=== PATIENT | male | born 1980 | race Caucasian/White ===

== ENCOUNTER 2018-04-07 10:15 | Emergency (ER) | payer MEDICAID ==
[2018-04-07] MEDS ORDERED: ONDANSETRON 4 MG/2 ML VIAL IVP ONE (10:47)
[2018-04-07] MEDS ORDERED: KETOROLAC 15 MG/1 ML SDV IVP ONE (10:47)
[2018-04-07] MEDS ORDERED: NS 1,000 ML IV ONE (10:48)
--- NOTE | 2018-04-07 10:54 | EDPHY ---
H & P Stated Complaint: Achiness, nausea since last evening Time Seen by Provider: 04/07/18 10:26 HPI/ROS: CHIEF COMPLAINT: Headache, myalgias HISTORY OF PRESENT ILLNESS: 37-year-old male presents with headache and myalgias. Onset of moderate myalgias yesterday, associated with a moderate headache, lack of appetite and nausea. Slight nasal congestion, no cough. Had chills last night, but no fever. ABBOTT has gradually increased and is now severe. No relief with Tylenol. No aggrevating/allev factors. No other associated factors. Concerned about meningitis. REVIEW OF SYSTEMS: complete 10 point ROS reviewed and is negative except for the noted elements in the HPI Source: Patient - Personal History Current Tetanus Diphtheria and Acellular Pertussis (TDAP): Yes - Medical/Surgical History Other PMH: obesity, hyperlipidemia - Social History Smoking Status: Never smoked Alcohol Use: Sober Drug Use: None Additional Social History: - Physical Exam Exam: General Appearance: Alert, pleasant, well-appearing, morbidly obese Eyes: Pupils equal and round, no conjunctival pallor or injection ENT, Mouth: Mucous membranes moist Neck: Normal inspection Respiratory: Lungs are clear to auscultation Cardiovascular: Regular rate and rhythm Gastrointestinal: Abdomen is soft and nontender Neurological: Alert, oriented x3, cranial nerves II through XII intact, motor 5 /5, sensory grossly intact Skin: Warm and dry Extremities: Normal inspection Psychiatric: Mood and affect normal Constitutional: Initial Vital Signs Temperature (C) 37.1 C 04/07/18 10:16 Heart Rate 98 04/07/18 10:16 Respiratory Rate 16 04/07/18 10:16 Blood Pressure 110/84 H 04/07/18 10:16 O2 Sat (%) 94 04/07/18 10:16 O2 Delivery Mode Room Air Allergies/Adverse Reactions: No Known Allergies Allergy (Unverified 04/07/18 10:20) Home Medications: Medication Instructions Recorded Hydrocodone/APAP 5/325 [[place] 1 - 2 tab PO Q4H PRN #10 tab 04/07/18 5/325] Ondansetron Odt [Zofran Odt 4 mg 4 mg PO Q4 PRN #6 tab 04/07/18 (*)] Medical Decision Making - Diagnostics Imaging Results: Head CT 04/07/18 11:35 Impression: Normal brain. No intracranial hemorrhage, mass, or extraaxial fluid collection. No evidence of acute sinusitis. Findings discussed with emergency department physician, So Reyes MD on April 07, 2018 at 12:17 p.m. Imaging: Discussed imaging studies w/ call specialist Radiologist, I viewed and interpreted images myself ED Course/Re-evaluation: This patient presents with myalgias, headache and nausea. IV normal saline 1 L, Toradol, Tylenol and Zofran given. Influenza swab sent. 1130: texting as I enter the room, appears comfortable. Still c/o severe ABBOTT and neck pain, nausea has resolved. CT scan of the brain is unremarkable. Given leukocytosis, severe ABBOTT and h/o fever, concern for meningitis. Discussed with patient need for lumbar puncture to rule out meningitis. He agrees, as he has been mainly concerned about meningitis. Clearly understands the risks and benefits of this procedure. Given his morbid obesity, and inability to palpate usual landmarks for LP, will need to send him over to Radiology for LP under fluoroscopy. 2:15 p.m.-discussed with Dr. Jaspreet Burkett. Patient had a successful lumbar puncture under fluoroscopy. Awaiting results. 3:00 p.m.-spinal fluid: No white blood cells present, no evidence of meningitis. Few red blood cells present, consistent with traumatic tap, adequately clearing on the 2nd tube. Results d/w pt. Reassured, clinical presentation c/w viral syndrome. Warning signs discussed. Differential Diagnosis: Headache including but not limited to subarachnoid hemorrhage, migraine headache , tension headache and infectious causes such as meningitis, pharyngitis and sinusitis. - Data Points Laboratory Results: Laboratory Results 04/07/18 10:55 04/07/18 10:55 Microbiology Results: MICROBIOLOGY 04/07/18 13:54 Cerebral Spinal Fluid Gram Stain - Final 04/07/18 13:54 Cerebral Spinal Fluid CSF Culture - Preliminary Medications Given: Discontinued Medications Sodium Chloride (Ns) 1,000 mls @ 0 mls/hr IV ONCE ONE; Wide Open PRN Reason: Protocol Stop: 04/07/18 10:49 Last Admin: 04/07/18 10:59 Dose: 1,000 mls Ketorolac Tromethamine (Toradol) 30 mg IVP EDNOW ONE Stop: 04/07/18 10:48 Last Admin: 11/04/18 10:59 Dose: 30 mg Ondansetron HCl (Zofran) 4 mg IVP EDNOW ONE Stop: 04/07/18 10:48 Last Admin: 04/07/18 10:59 Dose: 4 mg Departure - Departure Disposition: Home, Routine, Self-Care Clinical Impression: Viral syndrome Headache Qualifiers: Headache type: unspecified Headache chronicity pattern: acute headache Intractability: not intractable Qualified Code(s): R51 - Headache Condition: Good Instructions: Viral Syndrome (ED), Lumbar Puncture (ED) Additional Instructions: You have a viral syndrome. You do not have meningitis. Drink plenty of fluids today. Alternate Tylenol and ibuprofen for pain control. Return for worsening symptoms or any concerns. Referrals: Yaneli Escobar MD [Primary Care Provider] - As per Instructions Prescriptions: Hydrocodone/APAP 5/325 [[place] 5/325] 1 - 2 tab PO Q4H PRN #10 tab PRN Reason: Pain, Moderate Ondansetron Odt [Zofran Odt 4 mg (*)] 4 mg PO Q4 PRN #6 tab PRN Reason: Nausea
[2018-04-07] MEDS ORDERED: KETOROLAC 15 MG/1 ML SDV ONE (11:02)
[2018-04-07 11:24] LABS: PLATELET COUNT 302 10^3/uL (150-400)
[2018-04-07 12:44] LABS: INR 1.05 (0.83-1.16); PROTIME(PATIENT) 13.9 SEC (12.0-15.0)
[2018-04-07] MEDS ORDERED: LIDOCAINE 1% 300 MG/30 ML SDV ONE (12:56)
[2018-04-07 15:29] VITALS: BP 146/72
== END 2018-04-07 15:29 | disposition home or self-care (01) ==
PROC: 009U3ZX Drainage of Spinal Canal, Percutaneous Approach, Diagnostic (ICD-10-PCS; principal; 2018-04-07)
DX: B34.9 Viral infection, unspecified (principal); E86.9 Volume depletion, unspecified
CPT/HCPCS: 96374; J1885; J2405

== ENCOUNTER 2018-04-15 14:59 | Emergency (ER) | payer MEDICAID ==
--- NOTE | 2018-04-15 15:53 | EDPHY ---
H & P Stated Complaint: L flank LLQ abd pain Time Seen by Provider: 04/15/18 15:26 HPI/ROS: CHIEF COMPLAINT: Urinary frequency, dysuria HISTORY OF PRESENT ILLNESS: 37-year-old male presents with urinary frequency and dysuria. Onset of urinary symptoms 2 days ago, associated with left lower back pain. Symptoms are moderate. The back pain and does not change with movement. No abdominal pain. No vomiting or fever. Recently seen for headache and neck pain, lumbar puncture performed and was negative for meningitis. Headache and neck pain have now resolved. REVIEW OF SYSTEMS: complete 10 point ROS reviewed and is negative except for the noted elements in the HPI - Personal History Current Tetanus/Diphtheria Vaccine: Unsure Current Tetanus Diphtheria and Acellular Pertussis (TDAP): Unsure - Medical/Surgical History Hx Asthma: No Hx Chronic Respiratory Disease: No Hx Diabetes: No Hx Cardiac Disease: No Hx Renal Disease: No Hx Cirrhosis: No Hx Alcoholism: No Hx HIV/AIDS: No Hx Splenectomy or Spleen Trauma: No Other PMH: obesity, hyperlipidemia, HTN, - Social History Smoking Status: Never smoked Additional Social History: - Physical Exam Exam: General Appearance: Alert, pleasant, obese Eyes: Pupils equal and round, no conjunctival pallor or injection ENT, Mouth: Mucous membranes moist Neck: Normal inspection Respiratory: Lungs are clear to auscultation Cardiovascular: Regular rate and rhythm Gastrointestinal: Abdomen is soft, mild suprapubic tenderness Back: No CVA tenderness and no midline/paraspinous tenderness Neurological: A&O, nonfocal exam Skin: Warm and dry, no rash Extremities: Normal inspection Psychiatric: Mood and affect normal Constitutional: Initial Vital Signs Temperature (C) 36.5 C 04/15/18 15:05 Heart Rate 75 04/15/18 15:05 Respiratory Rate 16 04/15/18 15:05 Blood Pressure 137/79 H 04/15/18 15:05 O2 Sat (%) 94 04/15/18 15:05 O2 Delivery Mode Room Air Allergies/Adverse Reactions: No Known Allergies Allergy (Unverified 04/15/18 15:05) Home Medications: Medication Instructions Recorded Hydrocodone/APAP 5/325 [[place] 1 - 2 tab PO Q4H PRN #10 tab 04/07/18 5/325] Ondansetron Odt [Zofran Odt 4 mg 4 mg PO Q4 PRN #6 tab 04/07/18 (*)] Ciprofloxacin [Cipro] 500 mg PO BID #20 tab 04/15/18 Medical Decision Making ED Course/Re-evaluation: This patient presents with urinary symptoms. Urinalysis consistent with urinary tract infection. Urine culture sent. Will treat with Cipro. Follow- up instructions given. Differential Diagnosis: Differential diagnosis includes though is not limited to acute prostatitis, pyelonephritis, kidney stone, intra-abdominal process - Data Points Laboratory Results: 04/15/18 15:10 Urine Color YELLOW Urine Appearance CLEAR Urine pH 6.0 (5.0-7.5) Ur Specific [place] 1.016 (1.002-1.030) Urine Protein NEGATIVE (NEGATIVE) Urine Ketones NEGATIVE (NEGATIVE) Urine Blood 1+ H (NEGATIVE) Urine Nitrate NEGATIVE (NEGATIVE) Urine Bilirubin NEGATIVE (NEGATIVE) Urine Urobilinogen NEGATIVE EU EU (0.2-1.0) Ur Leukocyte Esterase 1+ H (NEGATIVE) Urine RBC 1-3 /hpf /hpf (0-3) Urine WBC 25-50 /hpf H /hpf (0-3) Ur Epithelial Cells TRACE /lpf /lpf (NONE-1+) Urine Mucus TRACE /lpf /lpf (NONE-1+) Urine Glucose NEGATIVE (NEGATIVE) Departure - Departure Disposition: Home, Routine, Self-Care Clinical Impression: Urinary tract infection Qualifiers: Urinary tract infection type: acute cystitis Hematuria presence: without hematuria Qualified Code(s): N30.00 - Acute cystitis without hematuria Condition: Good Instructions: Urinary Tract Infection in Men (ED) Referrals: Yaneli Escobar MD [Primary Care Provider] - As per Instructions Prescriptions: Ciprofloxacin [Cipro] 500 mg PO BID #20 tab
[2018-04-15 16:32] VITALS: BP 120/76
== END 2018-04-15 16:15 | disposition home or self-care (01) ==
DX: N30.00 Acute cystitis without hematuria (principal)